=== PATIENT | female | born 1990 | race Caucasian/White ===

== ENCOUNTER 2020-07-10 00:36 | Outpatient (CLI) | payer OTHER, SELFPAY ==
[2020-07-10 18:38] LABS: SARS-CoV-2 RNA PCR Negative
== END 2020-07-10 00:37 | disposition home or self-care (01) ==
LOC: ANHCOVIDDT 00:36
PROVIDERS: PCP Internal Medicine; Visit Provider Internal Medicine Gastroenterology
DX: Z01.818 Encounter for other preprocedural examination (principal); Z20.828 Contact with and (suspected) exposure to other viral communicable diseases
CPT/HCPCS: C9803; U0003

== ENCOUNTER 2020-07-13 00:55 | Day surgery (SDC) | payer OTHER, SELFPAY ==
[2020-06-26 10:51] VITALS: BMI 39.5
--- NOTE | 2020-07-13 07:03 | WPDANESEPPF ---
Anes - Initial Pre Proc Eval Procedure: Operation Date: 07/13/20 11:30 Proposed Procedures p Colonoscopy - Alton Muniz MD Date/Time: 07/13/20 07:03 Surgeon: Alton Muniz MD Pre Op Diagnosis: Rectal Bleed,Diarrhea Patient Data Age: 30 Gender: F Height: 1.63 m Weight: 104.5 kg Allergies Allergy/AdvReac Type Severity Reaction Status Date / Time doxycycline Allergy hives Verified 07/13/20 10:16 latex Allergy Hives Verified 07/13/20 10:16 sumatriptan Allergy Prolonged Verified 07/13/20 10:16 pain Home Medications Medication Instructions Recorded Confirmed Type biotin 2,500 mcg capsule 10,000 mcg PO DAILY cap 02/11/20 06/26/20 History esomeprazole magnesium 40 mg 40 mg PO EVERY OTHER DAY 02/11/20 06/26/20 History capsule,delayed release rizatriptan 10 mg tablet 5 mg PO ONCE PRN #30 tablet 02/11/20 06/26/20 Rx fluticasone propionate 50 2 spray INTRANASAL DAILY #15.8 ml 05/18/20 06/26/20 Rx mcg/actuation nasal spray,suspension cetirizine 10 mg tablet 10 mg PO DAILY 05/21/20 06/26/20 History norethindrone (contraceptive) 0.35 0.35 mg PO DAILY tablet 05/21/20 06/26/20 History mg tablet peg 3350 240 gram-electrolytes 240 ml PO Q10M #4000 ml 06/08/20 Rx 22.72 gram-6.72 g-5.84 g powdr for soln Patient hx anesthesia problems: none Family hx anesthesia problems: none PMFSH Past Medical History Medical History (Updated 07/13/20 @ 10:40 by Mor Walter DO) Allergies Alternating constipation and diarrhea Headache Surgical History Surgical History [place] teeth removed Family History Family History Mother Breast cancer Diabetes mellitus Father Asthma Diabetes mellitus Hypertension Grandparent Diabetes mellitus Heart murmur Hypertension Dementia Cerebrovascular accident Lung cancer Sibling ADHD Social History Social History Smoking status: Never smoker Alcohol intake: never Substance use: never Substance use type: does not use Living arrangements: with family Spiritual care concerns: No Anes - Eval Final PreProcedure Day of Procedure 07/13/20 07:03 Patient weight: obese Heart: regular rate and rhythm Lungs: clear to auscultation and normal air movement Airway: Mallampati scale class III Neurological: alert and oriented Last oral intake: >/= 8 hours ASA classification: II Emergent: no Anesthetic plan: proceed Anesthesia type and monitoring: general GIVS and standard monitoring Informed Consent: The patient's anesthetic plan and its attendant risks and benefits were discussed with the patient/family/POA. Questions were solicited and answers provided to the satisfaction of the patient/family/POA.
[2020-07-13 10:06] VITALS: BP 148/102; PULSE 93; RESP 18; TEMP 37.1; O2SAT 99; BMI 39.2
[2020-07-13] MEDS: LACTATED RINGERS 1,000 ML 150 ML IV CONT (10:34)
--- NOTE | 2020-07-13 11:21 | PM.HPGS ---
History of Present Illness History of Present Illness Consent: Risks, benefits, and alternatives have been discussed and questions answered. Patient agrees to proceed with procedure. Chief complaint: Rectal Bleed,Diarrhea Narrative: Holly Matt is a 30 year old female with intermittent rectal bleeding Review of Systems Constitutional: Constitutional: Denies headache(s) and Denies weakness Eyes: Eyes: Denies blurry vision ENT: Reports Normal hearing present, Denies headache(s) and Denies neck pain Cardiovascular: Cardiovascular: Denies chest pain and Denies dyspnea Respiratory: Respiratory: Denies dyspnea Gastrointestinal: Gastrointestinal: Reports no additional gastrointestinal complaints Genitourinary: Genitourinary: Denies dysuria Musculoskeletal: Musculoskeletal: Denies neck pain Integumentary/Breasts: Skin/Breast: Denies dry skin Neurologic: Reports Normal hearing present, Denies headache(s) and Denies weakness Psychiatric: Psychiatric: Denies anxiety Endocrine: Endocrine: Denies change in body appearance Hematologic/Lymphatic: Hematologic/Lymphatic: Denies easy bleeding Allergic/Immunologic: Allergic/Immunologic: Denies urticaria PMFSH Past Medical History Medical History (Updated 07/13/20 @ 11:22 by Alton Muniz MD) Allergies Alternating constipation and diarrhea Headache Rectal bleeding Surgical History Surgical History [place] teeth removed Family History Family History Mother Breast cancer Diabetes mellitus Father Asthma Diabetes mellitus Hypertension Grandparent Diabetes mellitus Heart murmur Hypertension Dementia Cerebrovascular accident Lung cancer Sibling ADHD Social History Social History Smoking status: Never smoker Alcohol intake: never Substance use: never Substance use type: does not use Living arrangements: with family Spiritual care concerns: No Meds Home Medications and Allergies Home Medications Medication Instructions Recorded Confirmed Type biotin 2,500 mcg capsule 10,000 mcg PO DAILY cap 02/11/20 06/26/20 History esomeprazole magnesium 40 mg 40 mg PO EVERY OTHER DAY 02/11/20 06/26/20 History capsule,delayed release rizatriptan 10 mg tablet 5 mg PO ONCE PRN #30 tablet 02/11/20 06/26/20 Rx fluticasone propionate 50 2 spray INTRANASAL DAILY #15.8 ml 05/18/20 06/26/20 Rx mcg/actuation nasal spray,suspension cetirizine 10 mg tablet 10 mg PO DAILY 05/21/20 06/26/20 History norethindrone (contraceptive) 0.35 0.35 mg PO DAILY tablet 05/21/20 06/26/20 History mg tablet peg 3350 240 gram-electrolytes 240 ml PO Q10M #4000 ml 06/08/20 Rx 22.72 gram-6.72 g-5.84 g powdr for soln Allergies Allergy/AdvReac Type Severity Reaction Status Date / Time doxycycline Allergy hives Verified 07/13/20 10:16 latex Allergy Hives Verified 07/13/20 10:16 sumatriptan Allergy Prolonged Verified 07/13/20 10:16 pain Vital Signs Vital Signs - 24 hr 07/13/20 10:06 Temperature 98.7 F Pulse Rate 93 Respiratory Rate 18 Blood Pressure 148/102 H Pulse Oximetry 99 Exam Const: General: comfortable and no acute distress HENMT: General nose exam: Normal nares present Eyes: General: appearance normal, both eyes and all related structures Neck: Neck: no JVD Resp: Auscultation: clear to auscultation bilaterally Cardio: Rate: regular rate Rhythm: regular rhythm GI: Inspection: non-distended GI Palp: Yes Soft to palpation Skin: General skin exam: normal color Neuro: General: gait normal Speech: normal speech Extrem: General: normal to inspection Psych: Mental Status: mental status grossly normal Assessment and Plan Assessment and plan (1) Alternating constipation and diarrhea: Code(s): R19.8 - Other specified symptoms
[2020-07-13 12:07] VITALS: BP 88/50; PULSE 89; RESP 28; O2SAT 92
[2020-07-13 12:17] VITALS: BP 110/64; PULSE 81; RESP 24; O2SAT 95
[2020-07-13 12:27] VITALS: BP 104/73; PULSE 82; RESP 18; O2SAT 96
== END 2020-07-13 13:00 | disposition home or self-care (01) ==
PROVIDERS: PCP Internal Medicine; Visit Provider Internal Medicine Gastroenterology
PROC: 0DJD8ZZ Inspection of Lower Intestinal Tract, Via Natural or Artificial Opening Endoscopic (ICD-10-PCS; CPT 45378; principal; 2020-07-13 11:30)
DX: K92.1 Melena (principal); D12.4 Benign neoplasm of descending colon; R19.4 Change in bowel habit; E66.9 Obesity, unspecified; Z68.39 Body mass index [BMI] 39.0-39.9, adult
CPT/HCPCS: 45381; 45385; 88305; C9803; J2704; J7120; U0003

== ENCOUNTER → 2023-05-03 13:27 | Outpatient (CLI) | payer OTHER, SELFPAY ==
--- NOTE | ~2023-05-03 | XR_ITS ---
EXAMINATION: XR chest 2V 05/03/2023 13:44 INDICATION: Cough PROCEDURE: 2 view chest COMPARISON: No prior studies for comparison. FINDINGS: The lungs are clear. The cardiomediastinal silhouette is within normal limits. There are no pleural effusions. There is no pneumothorax suspected. IMPRESSION: 1: NO ACUTE CARDIOPULMONARY DISEASE. Reviewed, dictated and finalized at location B.
== END ==
PROVIDERS: PCP Internal Medicine; Visit Provider Nurse Practitioner
DX: R05.9 Cough, unspecified (principal)
CPT/HCPCS: 71046

== ENCOUNTER → 2023-07-06 09:21 | Outpatient (CLI) | payer OTHER, SELFPAY ==
--- NOTE | ~2023-07-06 | XR_ITS ---
EXAMINATION: XR chest 2V 07/06/2023 09:43 INDICATION: Cough PROCEDURE: 2 view chest COMPARISON: 05/03/2023 FINDINGS: The lungs are clear. The cardiomediastinal silhouette is within normal limits. There are no pleural effusions. There is no pneumothorax suspected. IMPRESSION: 1: NO ACUTE CARDIOPULMONARY DISEASE. Reviewed, dictated and finalized at location L. PLATER
== END ==
PROVIDERS: PCP Nurse Practitioner; Visit Provider Nurse Practitioner
DX: R05.9 Cough, unspecified (principal)
CPT/HCPCS: 71046

== ENCOUNTER → 2023-07-27 13:31 | Outpatient (CLI) | payer OTHER, SELFPAY ==
--- NOTE | ~2023-07-27 | MM_ITS ---
EXAMINATION: MM screening alex BI w estrella HISTORY: Screening TECHNIQUE: Craniocaudal and mediolateral oblique 3-D tomosynthesis images were obtained and synthetic 2-D images were generated. CAD analysis was submitted and interpreted. COMPARISON: No prior studies for comparison. BREAST PARENCHYMAL COMPOSITION: There are scattered areas of fibroglandular density. FINDINGS: There is no evidence of suspicious mass, calcification, or architectural distortion to sugg est malignancy in either breast. There has been no suspicious interval change. IMPRESSION: 1. No mammographic evidence of malignancy. 2. Recommend routine screening mammography in one year. BI-RADS Category 1: Negative Reviewed, dictated and finalized at location A. H TRIMMER
== END ==
PROVIDERS: PCP Nurse Practitioner Obstetrics & Gynecology; Visit Provider Nurse Practitioner Obstetrics & Gynecology
DX: Z12.31 Encounter for screening mammogram for malignant neoplasm of breast (principal)
CPT/HCPCS: 77063; 77067

== ENCOUNTER 2023-09-08 10:52 | Outpatient (CLI) | payer OTHER, SELFPAY ==
[2023-09-11 11:30] LABS: Rubeola Measles IgG <13.50 AU/mL
[2023-09-11 13:44] LABS: NIL 0.09 IU/mL; Quantiferon TB Plus, 1T NEGATIVE (NEGATIVE); TB1-NIL 0.01 IU/mL; TB2-NIL <0.00 IU/mL
== END 2023-09-08 10:53 | disposition home or self-care (01) ==
LOC: ANHGOSHLAB 10:53
PROVIDERS: PCP Internal Medicine; Visit Provider Nurse Practitioner
DX: Z01.84 Encounter for antibody response examination (principal); Z11.1 Encounter for screening for respiratory tuberculosis
CPT/HCPCS: 36415; 86480; 86735; 86765

== ENCOUNTER 2024-02-21 15:49 | Emergency (ER) | payer OTHER, SELFPAY ==
--- NOTE | ~2024-02-21 | XR_ITS ---
XR ankle RT min 3V Ordering provider: Wilmar Cervantes APRN History: . rt lateral ankle pain swelling x 2 days ? etiology . Comparison: None. FINDINGS: BONES: No acute fracture or dislocation. JOINT SPACES: Normal. SOFT TISSUES: Normal. IMPRESSION: No acute osseous abnormality of the right ankle. Reviewed, dictated and finalized at location A.
--- NOTE | 2024-02-21 15:51 | ED.LOWEXIN ---
HPI - Extremity Injury (Lower) General Chief Complaint: Extremity Injury, Lower Stated Complaint: Right Ankle Pain Time Seen by Provider: 02/21/24 15:51 Source: patient Mode of arrival: ambulatory Limitations: no limitations History of Present Illness HPI Narrative: Damian is a 33-year-old female patient presenting to the clinic today with complaints of right-sided lateral ankle pain that began yesterday. He denies any known injury however she was helping set up for a baby shower yesterday and was on her feet. No history of arthritis, gout, or previous ankle injury Related Data Home Medications Medication Instructions Recorded Confirmed biotin 2,500 mcg capsule 10,000 mcg PO DAILY 02/11/20 02/21/24 esomeprazole magnesium 40 mg 40 mg PO EVERY OTHER DAY 02/11/20 02/21/24 capsule,delayed release (Nexium) cetirizine 10 mg tablet (Zyrtec) 10 mg PO DAILY 05/21/20 02/21/24 drospirenone (contraceptive) 4 mg 4 mg PO DAILY 04/22/21 02/21/24 (28) tablet (Slynd) Allergies Allergy/AdvReac Type Severity Reaction Status Date / Time doxycycline Allergy hives Verified 02/21/24 16:02 latex Allergy Hives Verified 02/21/24 16:02 sumatriptan Allergy Prolonged Verified 02/21/24 16:02 pain Review of Systems Review of Systems: Pertinent positives per HPI. Patient denies any fever, chills, rash, headache, visual changes, dizziness, cough, runny nose, sore throat, shortness of breath, chest pain, palpitations, nausea, vomiting, diarrhea, constipation, abdominal pain, or any urinary issues. [facility] Past Medical History Medical History Abnormal colonoscopy Allergies Alternating constipation and diarrhea Benign colon polyp Headache Rectal bleeding Surgical History Surgical History [place] teeth removed Family History Family History Mother Breast cancer Diabetes mellitus Father Asthma Diabetes mellitus Hypertension Grandparent Diabetes mellitus Heart murmur Hypertension Dementia Cerebrovascular accident Lung cancer Sibling ADHD Social History Social History (Reviewed 02/21/24 @ 16:22 by SU Saldana Social History: Caffeine-daily Smoking status: Never smoker Alcohol intake: never Substance use: never Substance use type: does not use Do You Feel Safe in your Home?: Yes Lack of Transportation: No Lack of Food: Never True Current Housing: I Have Housing Concerned About Future Housing: No Difficulty Paying Gas/Electric Bills: No Difficulty Paying for Meds: No Currently Unemployed: No Education: Associate Degree Difficulty w/ Childcare or Family Care: No Living arrangements: with family Occupation/Education: occupation Additional occupation/education comments: [employer] facility Spiritual care concerns: No Comments At the time of my signature, I reviewed and agree with the nursing past medical, surgical, social, and family history. There is no relevant family history pertinent to the patient complaint. Exam Narrative: General: Well-developed, obese, in no apparent distress Head: Normocephalic, atraumatic. Cardio: Regular rate and rhythm, s1 and s2 normal, no murmur appreciated. Resp: Clear to auscultation bilaterally, no rhonchi, rales, wheezing or rubs. Musculoskeletal: No deformity, tender to palpation over the right lateral malleolus, mild pain with valgus and varus testing of the right lateral ankle, grossly normal range of motion, muscle strength strong and equal, peripheral pulse strong, no edema, no cyanosis, normal gait and station Course Course Emergency Course: Portions of this record may have been created with voice recognition software. Level of Care: Express Care Visit Vital Signs Vital signs: Vital Signs Temperature 37.7 C H 02/20/
[2024-02-21 16:02] VITALS: BP 154/120; PULSE 107; RESP 16; TEMP 37.7; O2SAT 99
[2024-02-21 16:03] VITALS: BP 154/120; PULSE 107; RESP 16; TEMP 37.7; O2SAT 99
[2024-02-21 16:30] VITALS: BP 140/92; PULSE 99
== END 2024-02-21 16:46 | disposition home or self-care (01) ==
PROVIDERS: Emergency Provider Nurse Practitioner Family; PCP Internal Medicine
DX: R03.0 Elevated blood-pressure reading, without diagnosis of hypertension (principal); M25.571 Pain in right ankle and joints of right foot
CPT/HCPCS: 73610; 99213; G0463

== ENCOUNTER 2024-08-05 14:11 | Outpatient (CLI) | payer OTHER, SELFPAY ==
--- NOTE | ~2024-08-05 | MM_ITS ---
EXAMINATION: MM screening alex BI w estrella HISTORY: Screening TECHNIQUE: Craniocaudal and mediolateral oblique 3-D tomosynthesis images were obtained and synthetic 2-D images were generated. CAD analysis was submitted and interpreted. COMPARISON: 07/27/2023 BREAST PARENCHYMAL COMPOSITION: Not Dense: The breasts are almost entirely fatty. FINDINGS: There is no evidence of suspicious mass, calcification, or architectural distortion to sugg est malignancy in either breast. There has been no suspicious interval change. IMPRESSION: 1. No mammographic evidence of malignancy. 2. Recommend routine screening mammography in one year. BI-RADS Category 1: Negative Reviewed, dictated and finalized at location A. [employer]GER
== END 2024-08-05 14:12 | disposition home or self-care (01) ==
PROVIDERS: PCP Internal Medicine; Visit Provider Nurse Practitioner
DX: Z12.31 Encounter for screening mammogram for malignant neoplasm of breast (principal)
CPT/HCPCS: 77063; 77067

== ENCOUNTER 2025-02-10 09:15 | Outpatient (RCR) | payer OTHER, SELFPAY | END 2025-02-24 10:39 | disposition home or self-care (01) | LOC: ANHDMC 09:15 | PROVIDERS: PCP Internal Medicine; Visit Provider Nurse Practitioner | DX: E11.9 Type 2 diabetes mellitus without complications (principal); Z71.89 Other specified counseling | CPT/HCPCS: G0108 ==

== ENCOUNTER 2025-04-14 10:31 | Outpatient (RCR) | payer OTHER, SELFPAY | END 2025-04-14 14:24 | disposition home or self-care (01) | LOC: ANHDMC 10:31 | PROVIDERS: PCP Clinical Nurse Specialist; Visit Provider Nurse Practitioner | DX: E11.9 Type 2 diabetes mellitus without complications (principal); Z71.89 Other specified counseling | CPT/HCPCS: G0108 ==